=== PATIENT | male | born 1980 | race Caucasian/White ===

== ENCOUNTER 2017-07-16 08:11 | Emergency (ER) | payer SELFPAY ==
[2017-07-16] MEDS ORDERED: Adacel (T-DAP) 0.5 ML VIAL ONE (08:30)
[2017-07-16] MEDS ORDERED: Lidocaine 1% 20 ML MDV ONE (08:34)
[2017-07-16] MEDS ORDERED: HYDROcodone/Acetaminophen 10/325 mg Tablet ONE (08:39)
[2017-07-16] MEDS ORDERED: Bacitracin Zinc Ointment 30 gm TUBE ONE (09:32)
[2017-07-16] MEDS ORDERED: Bacitracin Zinc 1 Packet ONE (09:34)
--- NOTE | 2017-07-16 09:39 | CT ---
CERVICAL SPINE CT WITHOUT CONTRAST: Date: 07-16-17 Comparison: None. History: Trauma, abrasions, redness. Technique: Serial axial CT imaging at 2 mm intervals from skull base through lung apices without cont rast. Coronal and sagittal reformatted imaging obtained. FINDINGS: The imaged paranasal sinuses/mastoid air cells are well aerated. The C1 ring is intact. There is mild degenerative change at the atlantoaxial interspace. The craniocervical junction, the dens, the occip ital condyle, the C1-2 articulation, the craniocervical junction, and the cervicothoracic junction ar e unremarkable. There is mild disc space narrowing with mild posterior and anterior osteophyte format ion at C5-6. Imaged lung apices are unremarkable aside from minimal subpleural cystic change in the left apex. No prevertebral soft tissue abnormality. Cervical vertebral body height and alignment is normal with no evidence for acute fracture or dislocation. IMPRESSION: No acute osseous abnormality is seen. POS: [facility]
== END 2017-07-16 09:52 | disposition home or self-care (01) ==
LOC: SCSER 08:11
DX: S01.351A Open bite of right ear, initial encounter (principal); S01.311A Laceration without foreign body of right ear, initial encounter; W55.11XA Bitten by horse, initial encounter
CPT/HCPCS: 12001; 72125; 90471; 90715; J2001